=== PATIENT | male | born 1960 | race Caucasian/White ===

== ENCOUNTER 2017-08-18 19:22 | Emergency (ER) | payer OTHER ==
[~2017-08-18] VITALS: Ht 170.2 cm; Wt 72.6 kg
[~2017-08-18 19:22] MED LIST: ATENOLOL25 MG; TOPROL XL25 MG
== END 2017-08-18 21:10 | disposition home or self-care (01) ==
LOC: ER 19:22
DX: K61.0 Anal abscess (principal)

== ENCOUNTER 2022-12-06 18:23 | Emergency (ER) | payer OTHER ==
[~2022-12-06] VITALS: Ht 172.7 cm; Wt 77.1 kg
[2022-12-06 19:44] LABS: HEMATOCRIT 39.8 % (39.0-48.0); HEMOGLOBIN 13.3 g/dL (13-16.00); MEAN CELL VOLUME 96.2 fL (80.0-100.00); MEAN CORPUSCULAR HEMOGLOBIN 32.1 pg (27.00-32.0); MEAN CORPUSCULAR HGB CONC 33.4 g/dl (32.0-36.0); RED BLOOD COUNT 4.14 M/uL (4.00-6.00); RED CELL DISTRIBUTION WIDTH 13.4 % (11.5-14.5)
[2022-12-06 19:48] LABS: PLATELET COUNT 115 K/uL (150-450)
[2022-12-06 20:12] LABS: INR 1.07; PARTIAL THROMBOPLASTIN TIME 25.9 SECONDS (22.0-34.0); PROTHROMBIN TIME 11.2 SECONDS (9.0-11.5)
[2022-12-06 20:17] LABS: ALBUMIN 3.8 gm/dL (3.4-5.0); BILIRUBIN TOTAL 0.34 mg/dL (0.3-1.2); CALCIUM 9.2 mg/dL (8.5-10.1); CREATININE SERUM 1.34 mg/dL (0.70-1.30); GFR 54.37; GLOBULINA 3.5 G/DL (2.4-3.5); POTASSIUM 3.74 mEq/L (3.5-5.1); TOTAL PROTEIN 7.3 gm/dL (6.4-8.2)
[2022-12-06] MEDS ORDERED: PEPCID AC20 MG PO (22:09)
[2022-12-06] MEDS ORDERED: LEVSIN/SL0.125 MG SL (22:09)
== END 2022-12-06 22:30 | disposition home or self-care (01) ==
LOC: ER 18:23
PROVIDERS: General Practice
DX: R10.31 Right lower quadrant pain (principal); I10 Essential (primary) hypertension; B20 Human immunodeficiency virus [HIV] disease